=== PATIENT | male | born 1945 | race Caucasian/White ===

== ENCOUNTER → 2018-01-03 11:41 | Outpatient (CLI) | payer MEDICARE, SELFPAY ==
[2018-01-03 15:24] LABS: Absolute Lymphocyte Count 2.84 X10^3/ul (0.83-4.51); Absolute Neutrophil Count 8.6 X10^3/uL (2.0-7.7); Basophil# 0.02 X10^3/uL; Basophil% 0.2 % (0-1); Eosinophil# 0.15 X10^3/uL; Eosinophils% 1.2 % (0-5); Hematocrit 42.5 % (40-54); Hemoglobin 13.9 g/dl (13.0-16.5); Lymphocyte # 2.84 X10^3/ul (4.0); Lymphocyte % 22.4 % (19-41); Mean Corp Hgb Conc 32.7 g/gl (32-36); Mean Corpuscular Hgb 32.7 pg (27.0-32.0); Mean Platelet Vol. 9.6 fl (6.2-12.0); Monocyte# 1.08 X10^3/uL; Monocyte% 8.5 % (0-10); Neutrophil # 8.58 X10^3/uL (2.7-7.7); Neutrophil % 67.5 % (47-70); Platelet Count 317 K/mm3 (150-450); RBC Distribution Width CV 12.4 % (11.6-14.6); RBC Distribution Width SD 45.2 fl (35.1-43.9); Red Blood Count 4.25 M/mm3 (4.6-6.2); White Blood Count 12.7 K/mm3 (4.4-11.0)
[2018-01-03 15:31] LABS: AST(SGOT) 23 U/L (15-37); Alanine Aminotransfer ALT/SGPT 30 U/L (16-61); Albumin, Serum 3.5 g/dL (3.2-5.0); Alkaline Phosphatase 73 U/L (45-117); Anion Gap 8 (5-15); BUN 20 mg/dL (7-18); BUN/Creat Ratio 25.6 RATIO (10-20); Calcium,Total 8.6 mg/dL (8.5-10.1); Chloride 106 mmol/L (98-107); Cholesterol 183 mg/dL (200); Creatinine, Serum 0.78 mg/dL (0.70-1.30); EST Glomerular Filtration Rate 104 mL/min (>60); Est Glom Filt Rate - Afr Amer 126 mL/min (>60); Globulin 3.6 g/dL (2.2-4.2); Glucose 76 mg/dL (74-106); High Density Lipoprotein 67 mg/dL; Potassium 4.2 mmol/L (3.5-5.1); Protein, Total 7.1 g/dL (6.4-8.2); Sodium Level 141 mmol/L (136-145); Triglycerides 60 mg/dL; Very Low Density Lipoprotein 12 mg/dL (5-40)
[2018-01-03 15:44] LABS: POSITIVE COUNT NO; POSITIVE DIFFERENTIAL NO; POSITIVE MORPHOLOGY NO
== END ==
PROVIDERS: Visit Provider Family Medicine
DX: Z00.00 Encounter for general adult medical examination without abnormal findings (principal); Z12.5 Encounter for screening for malignant neoplasm of prostate
CPT/HCPCS: 36415; 80053; 80061; 84153; 85025; G0103

== ENCOUNTER → 2018-02-15 14:38 | Outpatient (CLI) | payer MEDICARE, SELFPAY | PROVIDERS: Family Provider Family Medicine; PCP Family Medicine; Visit Provider Family Medicine | DX: R31.9 Hematuria, unspecified (principal) | CPT/HCPCS: 87086 ==

== ENCOUNTER → 2018-03-21 07:44 | Outpatient (CLI) | payer MEDICARE, SELFPAY ==
--- NOTE | 2018-03-21 10:58 | PFTCOMP_ITS ---
COMPLETE PULMONARY FUNCTION TEST INTERPRETATION Brief HPI: Patient is a 72 year old male, currently under the care of Dr. Meyer, who presents to [facility] for complete pulmonary function tests secondary to diagnosis of bronchitis. Respiratory therapist reports good effort and reproducible results. Interpretation: Forced expiration spirometry shows a mild large airways obstructive ventilatory defect with an FEV1 of 79% predicted. There is a significant bronchodilator resp onse in FEV1 by strict ATS criteria. Spirograms are of good quality and plateau slowly, indicating slowly emptying areas of the lungs. The respiratory flow volume loop shows decreased expiratory flow rates at all lung volumes consistent with airway obstruction. Lung volumes by body plethysmography show an elevated total lung capacity at 8.79 L, 146% predicted. All other lung volumes are increased symmetrically. Diffusion capacity by carbon monoxide is normal at 78% predicted. The airway resistance is elevated. No previous pulmonary function tests were available for review. Impression: Partially reversible mild large airways obstructive ventilatory defect resulting in hyperinflation and consistent with a COPD/asthma overlap syndrome
== END ==
PROVIDERS: Family Provider Family Medicine; PCP Family Medicine; Referring Provider Family Medicine; Visit Provider Family Medicine
DX: J42 Unspecified chronic bronchitis (principal); Z72.0 Tobacco use
CPT/HCPCS: 94060; 94726; 94729

== ENCOUNTER 2018-03-27 00:48 | Inpatient (IN) | payer MEDICARE, SELFPAY ==
[2018-03-27] VITALS (13 sets, daily range): BP systolic 126–175; BP diastolic 70–105; PULSE 54–84; RESP 15–18; TEMP 36.6–37.2; O2SAT 96–100; BMI 23.9; BMI 23.6; BMI 23.2
--- NOTE | 2018-03-27 00:57 | CT_ITS ---
STUDY: CT ABDOMEN AND PELVIS WITH CONTRAST REASON FOR EXAM: Male, 72 years old. Trouble voiding, hematuria since 9:00 PM. History of enlarged prostate. RADIATION DOSAGE (If Supplied By Facility): CTDIvol = ( 12.67 ) mGy, DLP = ( 1183.26 ) mGycm TECHNIQUE: Transaxial 3.75 mm enhanced and delayed images were obtained from the dome of the diaphragm to the symphysis pubis without oral contrast. 100 ml of Isovue 300 contrast was administered. Sagittal and coronal images were reconstructed. Individualized dose optimization techniques were used for this CT. COMPARISON: None. FINDINGS: Hyperinflation and emphysematous lung changes bilaterally. There is no focal parenchymal abnormality. The visualized portions of the heart are within normal limits. Normal liver. Normal gallbladder and extrahepatic biliary system. Normal spleen. Normal pancreas. Normal bilateral adrenal glands. Normal right kidney. Normal left kidney. Normal visualized stomach. Normal small intestine. Normal colon. The appendix is visualized and appears normal. There is mild atherosclerosis of the abdominal aorta and pelvic arteries without aneurysm or leak. Normal inferior vena cava. Normal retroperitoneum. Distended urinary bladder measuring 9 x 9.2 x 11.5 cm with pockets of air along the nondependent portion. There is a round relatively homogeneous hyperattenuation containing a calcification along the dependent inferior urinary bladder floor measuring 7.1 x 7.4 x 7.5 cm. There is enlargement of the prostate gland. Prostate gland measures 6.6 x 7.3 x 6.6 cm. A Virk catheter is visualized in in the penile urethra with the partially inflated catheter balloon, the catheter tip extending to the inferior prostate. There is a bilateral hydrocele. The seminal vesicles are low attenuated and enlarged. There is a right-sided inguinal hernia containing fluid/hydrocele. Normal osseous structures. CT/Abdomen/Pelvis W IV Cont ONLY IMPRESSION: Distended urinary bladder containing a relatively homogeneous round hyperattenuation with a possibly urinary bladder calculus. This may be a hematoma. There is no lobularity or irregularity as to be expected with a neoplasm, neoplastic etiologies however not excluded. The Virk catheter is malpositioned within the penile urethra. Marked prostate enlargement. No UVJ obstruction. These findings were discussed on the telephone with Dr. Roblero at 305 hrs. EST on 03/27/2018. Enlarged seminal vesicles are of unclear etiology. Bilateral hydrocele, right inguinal hernia. Emphysema. Mild arteriosclerosis. Electronically Signed: Tiffany Campbell MD at 3:12 EST , Service support ,
[2018-03-27 01:21] LABS: Absolute Lymphocyte Count 1.82 X10^3/ul (0.83-4.51); Absolute Neutrophil Count 12.1 X10^3/uL (2.0-7.7); Basophil# 0.02 X10^3/uL; Basophil% 0.1 % (0-1); Eosinophil# 0.05 X10^3/uL; Eosinophils% 0.3 % (0-5); Hematocrit 41.1 % (40-54); Hemoglobin 14.1 g/dl (13.0-16.5); Lymphocyte # 1.82 X10^3/ul (4.0); Lymphocyte % 12.3 % (19-41); Mean Corp Hgb Conc 34.3 g/gl (32-36); Mean Corpuscular Hgb 33.3 pg (27.0-32.0); Mean Corpuscular Volume 97.2 fL (80-94); Mean Platelet Vol. 9.2 fl (6.2-12.0); Monocyte# 0.85 X10^3/uL; Monocyte% 5.7 % (0-10); Neutrophil # 12.05 X10^3/uL (2.7-7.7); Neutrophil % 81.3 % (47-70); Platelet Count 284 K/mm3 (150-450); RBC Distribution Width CV 12.1 % (11.6-14.6); RBC Distribution Width SD 43.1 fl (35.1-43.9); Red Blood Count 4.23 M/mm3 (4.6-6.2); White Blood Count 14.8 K/mm3 (4.4-11.0)
[2018-03-27 01:24] LABS: Mucous, Urine 0 SEEN /hpf (<or=2+); Squamous Epithelial Cells - UA 0 SEEN /hpf (0-5)
[2018-03-27 01:33] LABS: Color, Urine Red (Yellow); Glucose, Dipstick Normal (Normal); Ketone-Dipstick Negative (Negative); Leukocyte Esterase-Dipstick 25 /ul (Negative); Nitrite-Dipstick Negative (Negative); Occult Blood-Urine 250 /ul (Negative); Protein-Dipstick 500 mg/dl (Negative); Urine Bilirubin Dipstick Negative (Negative); Urine Clarity Turbid (Clear); Urine Urobilinogen Normal (Normal); Urine pH 6.5 (5.0 - 8.0)
[2018-03-27 01:37] LABS: Red Blood Cells-Urine > 100 SEEN /hpf (0-5)
[2018-03-27 01:37] LABS: ALB/GLOB Ratio 1.2 RATIO (0.9-2.4); AST(SGOT) 23 U/L (15-37); Alanine Aminotransfer ALT/SGPT 33 U/L (16-61); Albumin, Serum 3.7 g/dL (3.2-5.0); Alkaline Phosphatase 77 U/L (45-117); Anion Gap 10 (5-15); BUN 31 mg/dL (7-18); BUN/Creat Ratio 37.3 RATIO (10-20); Calcium,Total 8.8 mg/dL (8.5-10.1); Chloride 110 mmol/L (98-107); Creatinine, Serum 0.83 mg/dL (0.70-1.30); EST Glomerular Filtration Rate 97 mL/min (>60); Est Glom Filt Rate - Afr Amer 117 mL/min (>60); Estimated Creatinine Clearance 80.12 ml/min; Globulin 3.2 g/dL (2.2-4.2); Glucose 121 mg/dL (74-106); Potassium 4.1 mmol/L (3.5-5.1); Protein, Total 6.9 g/dL (6.4-8.2); Sodium Level 142 mmol/L (136-145)
[2018-03-27 01:38] LABS: Bacteria 2+ /hpf (None Seen); White Blood Cells 25-50 SEEN /hpf (0-5)
[2018-03-27 01:45] LABS: POSITIVE COUNT NO; POSITIVE DIFFERENTIAL NO; POSITIVE MORPHOLOGY NO
[2018-03-27] MEDS: HYDROmorphone 1 MG/ML Syringe IV (02:52)
[2018-03-27 03:37] LABS: Prothrombin Time (Protime)PT. 12.8 SECONDS (11.7-14.9)
[2018-03-27 03:38] LABS: Partial Thromboplast Time 30.1 Seconds (24.1-36.2)
--- NOTE | 2018-03-27 03:58 | ED.RN ---
#[address] BARRERA CATHETER REMOVED IT IS NOT DRAINING AND IT IS NOT PAST THE PROSTATE PER CT REPORT. #[address] INSERTED AT THIS TIME. IMMEDIATE HEMATURIA NOTE. PT FEELS RELIEF FROM BLADDER PRESSURE AT THIS TIME.
--- NOTE | 2018-03-27 04:28 | ED.VISSUMM ---
- ER Visit Summary Date of Service: 03/27/18 Chief Complaint: Urinary urgency History of Present Illness: The patient is a 72 M with urinary urgency, frequency, and hematuria. Patient had similar symptoms one time about a month ago and then he had recurrent symptoms for the last 3 hours prior to arrival. He said he is just urinating blood. He does not feel that he is emptying his bladder. He is going more frequently. Denies discharge, fevers, or any other symptoms. He denies blood thinner use. He has a history of an enlarged prostate and elevated PSA. He had prostate biopsies remotely, but nothing recently. No history of kidney stones. No history of prostate cancer. Physical Examination: Afebrile and vital signs unremarkable. The patient appears uncomfortable but not toxic or in distress. Patient has suprapubic area tenderness and fullness. Otherwise exam unremarkable. Test Results: White count 14.8, chloride 110, BUN 31, coags normal. Urinalysis shows hematuria with 25-50 white cells, only 25 leukocytes and negative nitrites. CT showed enlarged prostate with a homogenous mass in his bladder, suspected hematoma with an associated calcification. The catheter was not in the bladder. Emergency Department Course and Treatment: Patient had a catheter on arrival. He did drain some blood, and nursing replaced with a three-way catheter for irrigation. He had no further drainage even after irrigation. Patient went for a CT and showed that the catheter was not in the bladder. This was removed and a smaller Virk catheter was replaced successfully. He had drainage of bloody urine and improvement of his pain. Patient was discussed with Dr. Telles and will be admitted for further care. Treatment Plan: As above Disposition: Admission Impression: 1. Hematuria 2. Enlarged prostate This note was generated with [employer] software. It may contain incorrect words, spelling, and punctuation that were not noted in review of the chart prior to signing ED Disposition - Plan for ED Patient: Chief Complaint: Complaint Referrals: Radha Meyer MD [Primary Care Provider] -
[2018-03-27] MEDS: 0.9% Normal Saline 1,000 ML 75 ML IV ×2 (06:30→17:34)
[2018-03-27] MEDS: Finasteride 5 MG Tablet PO (07:44)
[2018-03-27] MEDS: Ciprofloxacin 500 MG Tablet PO ×2 (07:44→21:26)
[2018-03-27] MEDS: Citalopram 40 MG TABLET PO (07:44)
--- NOTE | 2018-03-27 09:05 | PCM.HP.STD ---
Problem List (1) Gross hematuria Status: Acute Comment: Acute onset (2) Bladder stone Status: Acute (3) BPH with obstruction/lower urinary tract symptoms Status: Acute History of Present Illness Date of Admission: 03/26/18 Chief Complaint: Gross hematuria The patient is a 72 year old male who was admitted on March 26, 2018 to the hospital with gross hematuria, CAT scan was done that demonstrated a large bladder stone and a large blood clot within the bladder he also has a very large prostate. Known to me in the office we follow him for enlarged prostate up to now he has not had too many symptoms and has been on observation Past Medical History Medical History: Medical History (Last Updated 03/27/18 @ 09:08 by Jed Telles MD) BPH with obstruction/lower urinary tract symptoms N40.1, N13.8 Allergies Sulfa (Sulfonamide Antibiotics) Allergy (Verified 03/27/18 00:52) Anaphylaxis Home Medications: Ambulatory Orders Medication Instructions Recorded Citalopram [Celexa] 40 mg PO DAILY 08/02/15 Naproxen [Naprosyn] 500 mg PO DAILY PRN PRN 03/27/18 Surgical History: noncontributory Psychiatric History: No pertinent psych hx Lives: With Family Smoking Status: Current every day smoker Tobacco Use: Non-smoker Alcohol: None Drugs: None - *Family History Maternal History Items: No pertinent history Review of Systems Constitutional: Denies: Chills, Fever, Weight Change HEENT: Denies: Head Aches, Sinus Congestion, Sinus Drainage Cardiovascular: Denies: Chest Pain, Palpitations Respiratory: Denies: Cough, Shortness of breath at rest, Sputum production Gastrointestinal: Denies: Abdominal Pain, Nausea, Vomiting Genitourinary: Reports: Hematuria. Denies: Dysuria Musculoskeletal: Denies: Joint Pain, Joint Tenderness Skin: Denies: Rash, Wounds Neurological: Denies: Numbness, Tingling, Focal weakness Psychiatric: Denies: Anxiety, Depression, Homicidal Ideations, Suicidal Ideations Hematologic/ Lymphatic: Denies: Easy Bruising, Easy Bleeding VTE Information - Inpt Only VTE Present on Admission: No VTE Mechan Device Prophylaxis: SCD's Patient Problems: Active and Suspected Problems Gross hematuria (Acute) Acute onset Bladder stone (Acute) BPH with obstruction/lower urinary tract symptoms (Acute) - Physical Exam General: Alert, Oriented x3, Cooperative HEENT: Atraumatic, PERRLA, EOMI, Normocephalic Neck: Supple, No JVD, Negative Carotid Bruits Lungs: Clear to auscultation, Normal air movement Cardiovascular: Regular rate, No murmurs Abdomen: Bowel Sounds Present, Soft, Non Tender Extremities: No edema, Capillary Refill Less than 3 Seconds Skin: No rashes, No breakdown Musculoskeletal: No Tenderness to Palpation of Joints or Extremities Neurological: Cranial nerves II-XII grossly intact Psych/Mental Status: Normal Affect, Appropriate Vital Signs Temp Pulse Resp BP Pulse Ox 98.1 F 77 18 134/74 H 97 03/27/18 05:32 03/27/18 05:32 03/27/18 05:32 03/27/18 05:32 03/27/18 05:32 Oxygen Delivery Method Room Air Weight: 71.4 kg Body Mass Index (BMI) 23.6 Intake and Output for Last 24 Hours 03/25/18 03/26/18 03/27/18 23:59 23:59 23:59 Output Total 675 / 675 Balance -675 / -675 Laboratory Tests Past 24 Hrs 03/27/18 03/27/18 03/27/18 01:14 01:14 01:14 WBC 14.8 H RBC 4.23 L Hgb 14.1 Hct 41.1 MCV 97.2 H MCH 33.3 H MCHC 34.3 RDW 12.1 RDW Differential 43.1 Plt Count 284 MPV 9.2 Immature Gran % (Auto) 0.300 Neut % (Auto) 81.3 H Lymph % (Auto) 12.3 L Mcclain % (Auto) 5.7 Eos % (Auto) 0.3 Baso % (Auto) 0.1 Absolute Neuts (auto) 12.1 H Absolute Lymphs (auto) 1.82 Total Counted Not Reportable PT 12.8 INR 1.0 APTT 30.1 Sodium 142 Potassium 4.1 Chloride 110 H Carbon Dioxide 22.0 Anion Gap 10 BUN 31 H Creatinine 0.83 Estim Creat Clear Calc 80.12 Est GFR (MDRD) Af Amer 117 Est GFR (MDRD) Non-Af 97 BUN/Creatinine Ratio 37.3 H Glucose 121 H Calcium 8.8 Total Bilirubin 0.30 AST 23 ALT 33 Alkaline Phosphatase 77 Total Protein 6.9 Albumin 3.7 Globulin 3.2 Albumin/Globulin Ratio 1.2 Urine Color Urine Clarity Urine pH Ur Specific [place] Urine Protein Urine Glucose (UA) Urine Ketones Urine Occult Blood Urine Nitrite Urine Bilirubin Urine Urobilinogen Ur Leukocyte Esterase Urine RBC Urine WBC Ur Squamous Epith Cells Urine Bacteria Urine Mucus 03/27/18 01:20 WBC RBC Hgb Hct MCV MCH MCHC RDW RDW Differential Plt Count MPV Immature Gran % (Auto) Neut % (Auto) Lymph % (Auto) Mcclain % (Auto) Eos % (Auto) Baso % (Auto) Absolute Neuts (auto) Absolute Lymphs (auto) Total Counted PT INR APTT Sodium Potassium Chloride Carbon Dioxide Anion Gap BUN Creatinine Estim Creat Clear Calc Est GFR (MDRD) Af Amer Est GFR (MDRD) Non-Af BUN/Creatinine Ratio Glucose Calcium Total Bilirubin AST ALT Alkaline Phosphatase Total Protein Albumin Globulin Albumin/Globulin Ratio Urine Color Red Urine Clarity Turbid Urine pH 6.5 Ur Specific [place] 1.020 Urine Protein 500 H Urine Glucose (UA) Normal Urine Ketones Negative Urine Occult Blood 250 H Urine Nitrite Negative Urine Bilirubin Negative Urine Urobilinogen Normal Ur Leukocyte Esterase 25 H Urine RBC > 100 SEEN Urine WBC 25-50 SEEN Ur Squamous Epith Cells 0 SEEN Urine Bacteria 2+ Urine Mucus 0 SEEN Assessment/Plan All Active Problems Gross hematuria (Acute) Bladder stone (Acute) BPH with obstruction/lower urinary tract symptoms (Acute) Patient will be admitted to the hospital, Virk catheter was placed draining bloody urine. At this point the nurses will irrigate the catheter manually as needed if not draining also use BNO suppositories for bladder spasms. CAT scan demonstrates a bladder stone and large bladder hematoma. [facility] tomorrow for cystoscopy cystolitholapaxy and laser of the bladder stone and evacuation of blood clots. We will start him on Flomax and Proscar continue with antibiotics.
--- NOTE | 2018-03-27 09:35 | EKG12_ITS ---
Test Reason : PRE OP Blood Pressure : / mmHG Vent. Rate : 061 BPM Atrial Rate : 061 BPM P-R Int : 168 ms QRS Dur : 098 ms QT Int : 460 ms P-R-T Axes : 070 083 076 degrees QTc Int : 463 ms Normal sinus rhythm Normal ECG When compared with ECG of 22-MAR-2014 12:01, No significant change was found Confirmed by MIRIAN TAVAREZ, DEIDRA ([id number]), photograph editor GOVIND RDZ ([id number]) on 03/29/2018 5:38:20 PM Referred By: Radha Meyer Confirmed By:DEIDRA VELA MD
--- NOTE | 2018-03-27 14:25 | OP.PCM_ITS ---
Problem List (1) Gross hematuria Status: Acute Comment: Acute onset (2) Bladder stone Status: Acute (3) BPH with obstruction/lower urinary tract symptoms Status: Acute Report of Operation Date of Procedure: 03/27/18 Pre-Operative Diagnosis: Gross hematuria and BPH and bladder stone large Post-Operative Diagnosis: Same Surgery/Procedure Performed:: Cystoscopy evacuation of blood clots cystolitholapaxy and laser of a large bladder stone placement of a three-way catheter Description of Surgical Findings:: Indication is a 72-year-old male presented to the hospital with bleeding CAT scan was done that demonstrated a large hematoma in the bladder a large bladder stone very enlarged prostate. Is a patient known to my practice we have been watching his prostate for a long time he has been relatively asymptomatic but presented to the hospital with gross hematuria and clot retention. A catheter was placed he was put on irrigation. At this point we admitted the patient for the clot retention pain control and taken to the surgery as soon as possible to evacuate the blood clots and also laser of the bladder stone. 72-year-old male who was taken back to the operating room after smooth induction of general anesthesia he was placed supine on the table that he was placed in dorsolithotomy position make sure that his legs were padded in the stirrups he had SCDs on for DVT prophylaxis, he was given Cipro antibiotic prior to the procedure. The current catheter was removed and the penis and testicles are prepped and draped in usual sterile fashion went into the bladder with a 21 Azerbaijani rigid cystourethroscope the entire length of the urethra was normal sphincter was intact prostate had bilateral hypertrophy no median lobe extremely large prostate. Once entered the bladder he had a large hematoma within the bladder this was manually irrigated out with a Angel Luis syringe to irrigate out all the clots out after irrigating out the clots that the bottom of the bladder was a large bladder stone I used a 1000 ?m laser fiber with energy settings of 6 Hz and 3.0 J and laser the stone little tiny pieces after successfully lasering the stone I then evacuated the stone fragments from the bladder until all the stone fragments were clear at that point we inspected the bladder had a very large protruding prostate bilateral hypertrophy a lot of venous veins around the prostate no clear indication where the bleeding was coming from I suspect probably from the stone rubbing against the prostate and all the veins. Within the bladder there is no tumor no tumors checked the posterior wall lateral holder anterior wall no tumors are seen within the bladder all the clots were evacuated out. Was checked with a 70 and 30 degree lens. After evacuation of the blood clots laser out the stone checking for cancer however he was clear and then placed a 22 Azerbaijani three-way catheter into the bladder put on continuous bladder irrigation and his anesthesia is currently being reversed. Type of Anesthesia:: General Drains: 22fr - Admit VTE Documentation VTE Present on Admission: No VTE Mechan Device Prophylaxis: SCD's
--- NOTE | 2018-03-27 14:37 | DCINST_ITS ---
Discharge Diet: Light diet - advance as tolerated Discharge Activity: May Drive Return to work on:: 03/29/18 May resume sexual activity in: No Restrictions Call your doctor if your incision/area has: Sudden Increased Bleeding Call your doctor if you observe: Fever of 101 or Higher Suture Line Care: Avoid Pulling/Pushing, Avoid Pinching/Bending Allergies/Adverse Reactions: Allergies Sulfa (Sulfonamide Antibiotics) Allergy (Verified 03/27/18 00:52) Anaphylaxis Medications to take at Discharge Citalopram [Celexa] 40 mg PO DAILY 08/02/15 Ciprofloxacin [Cipro] 500 mg PO BID #6 tablet 03/27/18 Finasteride [Proscar] 5 mg PO DAILY #30 tablet 03/27/18 Naproxen [Naprosyn] 500 mg PO DAILY PRN PRN 03/27/18 Tamsulosin HCl [Flomax] 0.4 mg PO DAILY #30 capsule 03/27/18 The following prescriptions were given: Finasteride [Proscar] 5 mg PO DAILY #30 tablet Tamsulosin HCl [Flomax] 0.4 mg PO DAILY #30 capsule Ciprofloxacin [Cipro] 500 mg PO BID #6 tablet Primary Care Physician: Radha Meyer MD [Primary Care Provider] - Test Results: Test results from this visit will be discussed in further detail at your follow- up appointment, if applicable. Please Follow Up With: Jed Telles MD When: in 2 weeks, please call to make an appointment.
[2018-03-27] MEDS: Tamsulosin HCl 0.4 MG Capsule 0.8 MG PO (17:32)
[2018-03-27] MEDS: DiphenhydrAMINE 25 MG Capsule PO (21:27)
[2018-03-28] MEDS: Acetaminophen 325 MG Tablet 650 MG PO (02:40)
[2018-03-28] MEDS: 0.9% Normal Saline 1,000 ML 75 ML IV (02:41)
[2018-03-28 03:00] VITALS: BP 113/66; PULSE 77; RESP 16; TEMP 36.9; O2SAT 99
--- NOTE | 2018-03-28 07:24 | PCM.DC.SUM ---
Discharge Date and Diagnosis - Problem List Patient Problems: Active and Suspected Problems (Last Updated 03/27/18 @ 09:08 by Jed Telles MD) Gross hematuria (Acute) Acute onset Bladder stone (Acute) BPH with obstruction/lower urinary tract symptoms (Acute) Date of Admission: 03/26/18 Date of Discharge: 03/28/18 - Primary Discharge Diagnosis Active and Suspected Problems (Last Updated 03/27/18 @ 09:08 by Jed Telles MD) Gross hematuria (Acute) Acute onset Bladder stone (Acute) BPH with obstruction/lower urinary tract symptoms (Acute) Hospital Course and Treatment Operations: - - cystoscopy and laser bladder stones Procedures: None Summary of Care Provided: The patient is a 72 year old male admitted from bleeding had large bladder stone, taken to surgery and bladder stone lasered, 3 way carmen d/c home after voids.rx given. Patient Problems: Active and Suspected Problems (Last Updated 03/27/18 @ 09:08 by Jed Telles MD) Gross hematuria (Acute) Acute onset Bladder stone (Acute) BPH with obstruction/lower urinary tract symptoms (Acute) - Physical Exam General: Alert, Oriented x3, Cooperative HEENT: Atraumatic, PERRLA, EOMI, Normocephalic Neck: Supple, No JVD, Negative Carotid Bruits Lungs: Clear to auscultation, Normal air movement Cardiovascular: Regular rate, No murmurs Abdomen: Bowel Sounds Present, Soft, Non Tender Extremities: No edema, Capillary Refill Less than 3 Seconds Skin: No rashes, No breakdown Musculoskeletal: No Tenderness to Palpation of Joints or Extremities Neurological: Cranial nerves II-XII grossly intact Psych/Mental Status: Normal Affect, Appropriate Vital Signs Temp Pulse Resp BP Pulse Ox 98.4 F 77 16 113/66 99 03/28/18 03:00 03/28/18 03:00 03/28/18 03:00 03/28/18 03:00 03/28/18 03:00 Oxygen Flow Rate (L/min) 10 Oxygen Delivery Method Room Air Weight: 71.4 kg Body Mass Index (BMI) 23.2 Intake and Output for Last 24 Hours 03/26/18 03/27/18 03/28/18 23:59 23:59 23:59 Intake Total 2226 / 2226 1165 / 1165 Output Total 2075 / 2075 1600 / 1600 Balance 151 / 151 -435 / -435 Discharge Diet: Light diet - advance as tolerated Discharge Activity: May Drive Return to work on:: 03/29/18 May resume sexual activity in: No Restrictions Call your doctor if your incision/area has: Sudden Increased Bleeding Call your doctor if you observe: Fever of 101 or Higher Suture Line Care: Avoid Pulling/Pushing, Avoid Pinching/Bending Home Medications: Medications to take at Discharge Citalopram [Celexa] 40 mg PO DAILY 08/02/15 Ciprofloxacin [Cipro] 500 mg PO BID #6 tablet 03/27/18 Finasteride [Proscar] 5 mg PO DAILY #30 tablet 03/27/18 Naproxen [Naprosyn] 500 mg PO DAILY PRN PRN 03/27/18 Tamsulosin HCl [Flomax] 0.4 mg PO DAILY #30 capsule 03/27/18 Following Prescrptions Were Given to Patient: Finasteride [Proscar] 5 mg PO DAILY #30 tablet Tamsulosin HCl [Flomax] 0.4 mg PO DAILY #30 capsule Ciprofloxacin [Cipro] 500 mg PO BID #6 tablet Primary Care Physician: Radha Meyer MD [Primary Care Provider] - Please Follow Up With: Jed Telles MD When: in 2 weeks, please call to make an appointment. Medical Necessity - Tobacco Use Smoking Status: Current every day smoker Tobacco Use: Non-smoker Meaningful Use Info Meaningful Use Diagnoses (Choose all that apply): None applicable
[2018-03-28 07:50] VITALS: BP 118/67; PULSE 70; RESP 16; TEMP 36.7; O2SAT 96
[2018-03-28] MEDS: Finasteride 5 MG Tablet PO (09:25)
[2018-03-28] MEDS: Citalopram 40 MG TABLET PO (09:25)
[2018-03-28] MEDS: Ciprofloxacin 500 MG Tablet PO (09:25)
[2018-03-28 10:45] VITALS: BP 125/63; PULSE 79; RESP 16; TEMP 36.7; O2SAT 95
--- NOTE | 2018-03-28 11:05 | CASEMGMT ---
LAVELL CM in to complete Face to Face assessment with patient. Patient is dressed, walking independently in room. Patient states he is discharging home and denies needs at this time. Patient is aware of follow-up plans and has appointment in 2 weeks. Patient denies any further needs at this time.
== END 2018-03-28 11:11 | disposition home or self-care (01) | DRG 700 ==
LOC: ED 03:01 → MS3 04:35
PROVIDERS: Admitting Provider Urology; Emergency Provider Emergency Medicine; Family Provider Family Medicine; PCP Family Medicine; Visit Provider Urology
PROC: 0TCB8ZZ Extirpation of Matter from Bladder, Via Natural or Artificial Opening Endoscopic (ICD-10-PCS; principal; 2018-03-27 10:30)
DX: N32.89 Other specified disorders of bladder (principal); N40.1 Benign prostatic hyperplasia with lower urinary tract symptoms; N13.8 Other obstructive and reflux uropathy; N21.0 Calculus in bladder; R31.0 Gross hematuria; J44.9 Chronic obstructive pulmonary disease, unspecified; F17.210 Nicotine dependence, cigarettes, uncomplicated
CPT/HCPCS: 51702; 74177; 80053; 81001; 85025; 85610; 85730; 87086; 93005; 99283; J7030; Q9967; A4216

== ENCOUNTER → 2018-09-19 07:41 | Outpatient (CLI) | payer MEDICARE, SELFPAY ==
[2018-03-27 12:55] VITALS: BMI 23.2
--- NOTE | 2018-09-19 07:49 | US_ITS ---
PROCEDURES: ULTRASOUND AORTA REASON FOR EXAM: Male, 73 years old. Screening TECHNIQUE: Ultrasound evaluation of the aorta was performed with real-time and static starks-scale imaging. COMPARISON: None. FINDINGS: There is atherosclerotic plaque formation of the abdominal aorta. Aorta measures: Proximal 2.3 cm. Middle 1.6 cm. Distal 1.6 cm. Aorta measure transversely: Proximal 2.5 cm. Middle 1.9 cm. Distal 1.7 cm. Right iliac artery measures: 1.0 cm. Right iliac artery measure transversely: 1.4 cm. Left iliac artery measures: 1.0 cm. Left iliac artery measure transversely: 1.3 cm. There is no demonstrated aneurysm.. US/Aorta IMPRESSION: Mild plaque, no demonstrated aneurysm or dissection Electronically Signed: Cody Calderón MD at 16:29 EDT , Service support ,
== END ==
PROVIDERS: Family Provider Family Medicine; PCP Family Medicine; Referring Provider Family Medicine; Visit Provider Family Medicine
DX: Z13.6 Encounter for screening for cardiovascular disorders (principal); Z72.0 Tobacco use
CPT/HCPCS: 76775

== ENCOUNTER → 2018-12-26 09:32 | Outpatient (CLI) | payer MEDICARE, SELFPAY ==
[2018-03-27 12:55] VITALS: BMI 23.2
== END ==
PROVIDERS: Family Provider Family Medicine; PCP Family Medicine; Referring Provider Urology; Visit Provider Urology
DX: R97.20 Elevated prostate specific antigen [PSA] (principal)
CPT/HCPCS: 36415; 84153

== ENCOUNTER → 2020-04-08 09:09 | Outpatient (CLI) | payer MEDICARE, SELFPAY ==
[2018-03-27 12:55] VITALS: BMI 23.2
[2020-04-08 10:29] LABS: PSA,Total- Diagnostic 9.34 ng/mL (0.0-4.0)
== END ==
PROVIDERS: PCP Family Medicine; Referring Provider Urology; Visit Provider Urology
DX: N40.1 Benign prostatic hyperplasia with lower urinary tract symptoms (principal)
CPT/HCPCS: 36415; 84153

== ENCOUNTER 2021-05-26 10:33 | Outpatient (CLI) | payer MEDICARE, SELFPAY ==
[2021-05-26 13:20] LABS: PSA,Total- Diagnostic 7.85 ng/mL (0.0-4.0)
== END 2021-05-26 23:59 | disposition home or self-care (01) ==
LOC: LAB 10:37
PROVIDERS: PCP Family Medicine; Referring Provider Urology; Visit Provider Urology
DX: N40.1 Benign prostatic hyperplasia with lower urinary tract symptoms (principal)
CPT/HCPCS: 36415; 84153

== ENCOUNTER → 2021-12-29 | Outpatient (CLI) | payer MEDICARE, SELFPAY ==
--- NOTE | 2021-12-29 09:19 | RAD_ITS ---
STUDY: X-RAY CHEST REASON FOR EXAM: Male, 76 years old. Right upper anterior chest wall pain. Right shoulder pain. TECHNIQUE: PA and lateral views of the chest. COMPARISON: None. FINDINGS: The lungs are mildly hyperexpanded. There is no acute infiltrate or mass. There is no demonstrated pleural abnormality. Normal size heart. Normal mediastinum and daysi. Normal visualized pulmonary arteries. There is atherosclerotic calcification of the aortic arch with tortuosity. Normal visualized thoracic spine. There is degenerative osteoarthritis of the bilateral shoulders. There is no demonstrated abnormality of the visualized soft tissue structures of the upper abdomen. RAD/Chest PA and Lateral IMPRESSION: Degenerative changes, as described above. No demonstrated acute cardiopulmonary process. Electronically Signed: Carlos Shannon DO at 17:03 EDT ,
[2021-12-29 12:18] LABS: Absolute Lymphocyte Count 2.21 X10^3/uL (0.83-4.51); Basophil# 0.06 X10^3/uL; Basophil% 0.6 % (0-1); Eosinophil# 0.13 X10^3/uL; Eosinophils% 1.4 % (0-5); Hematocrit 44.4 % (40-54); Hemoglobin 14.7 g/dL (13.0-16.5); Lymphocyte # 2.21 X10^3/ul (0.83-4.51); Lymphocyte % 23.5 % (19-41); Mean Corp Hgb Conc 33.1 g/dL (32-36); Mean Corpuscular Hgb 33.7 pg (27.0-32.0); Mean Corpuscular Volume 101.8 fL (80-94); Mean Platelet Vol. 9.3 fl (6.2-12.0); Monocyte# 0.94 X10^3/uL; NRBC Flagged by Analyzer 0 % (0-5); Neutrophil # 6.01 X10^3/uL (2.7-7.7); Neutrophil % 64.1 % (47-70); Platelet Count 385 K/mm3 (150-450); RBC Distribution Width SD 45.9 fl (35.1-43.9); Red Blood Count 4.36 M/mm3 (4.6-6.2); White Blood Count 9.4 K/mm3 (4.4-11.0)
[2021-12-29 13:47] LABS: ALB/GLOB Ratio 0.9 RATIO (0.9-2.4); AST(SGOT) 24 U/L (15-37); Alanine Aminotransfer ALT/SGPT 31 U/L (16-61); Albumin, Serum 3.5 g/dL (3.2-5.0); Alkaline Phosphatase 84 U/L (45-117); Anion Gap 8 (5-15); BUN 25 mg/dL (7-18); Calcium,Total 9.5 mg/dL (8.5-10.1); Chloride 103 mmol/L (98-107); Cholesterol 192 mg/dL (200); Creatinine, Serum 0.89 mg/dL (0.70-1.30); EST Glomerular Filtration Rate 88 mL/min (>60); Est Glom Filt Rate - Afr Amer 107 mL/min (>60); Globulin 3.7 g/dL (2.2-4.2); Glucose 96 mg/dL (74-106); High Density Lipoprotein 77 mg/dL; Potassium 4.1 mmol/L (3.5-5.1); Protein, Total 7.2 g/dL (6.4-8.2); Sodium Level 140 mmol/L (136-145); Triglycerides 75 mg/dL; Very Low Density Lipoprotein 15 mg/dL (5-40)
== END | disposition home or self-care (01) ==
PROVIDERS: PCP Family Medicine; Referring Provider Family Medicine; Visit Provider Family Medicine
DX: R07.9 Chest pain, unspecified (principal); E78.5 Hyperlipidemia, unspecified
CPT/HCPCS: 36415; 71046; 80053; 80061; 85025

== ENCOUNTER → 2022-02-11 | Outpatient (CLI) | payer MEDICARE, SELFPAY ==
[2022-02-11 15:20] LABS: Absolute Lymphocyte Count 1.91 X10^3/uL (0.83-4.51); Absolute Neutrophil Count 5.5 X10^3/uL (2.0-7.7); Basophil# 0.04 X10^3/uL; Basophil% 0.5 % (0-1); Eosinophil# 0.08 X10^3/uL; Eosinophils% 0.9 % (0-5); Hematocrit 43.6 % (40-54); Hemoglobin 14.8 g/dL (13.0-16.5); Lymphocyte # 1.91 X10^3/ul (0.83-4.51); Lymphocyte % 22.4 % (19-41); Mean Corp Hgb Conc 33.9 g/dL (32-36); Mean Corpuscular Hgb 34.3 pg (27.0-32.0); Mean Corpuscular Volume 101.2 fL (80-94); Mean Platelet Vol. 9.6 fl (6.2-12.0); Monocyte# 0.94 X10^3/uL; NRBC Flagged by Analyzer 0 % (0-5); Neutrophil # 5.52 X10^3/uL (2.7-7.7); Platelet Count 367 K/mm3 (150-450); RBC Distribution Width CV 11.5 % (11.6-14.6); RBC Distribution Width SD 43.2 fl (35.1-43.9); Red Blood Count 4.31 M/mm3 (4.6-6.2); White Blood Count 8.5 K/mm3 (4.4-11.0)
[2022-02-11 15:34] LABS: Anion Gap 5 (5-15); BUN 21 mg/dL (7-18); BUN/Creat Ratio 26.5 RATIO (10-20); Calcium,Total 9.7 mg/dL (8.5-10.1); Chloride 103 mmol/L (98-107); Creatinine, Serum 0.79 mg/dL (0.70-1.30); EST Glomerular Filtration Rate 101 mL/min (>60); Est Glom Filt Rate - Afr Amer 123 mL/min (>60); Glucose 95 mg/dL (74-106); Potassium 4.1 mmol/L (3.5-5.1); Sodium Level 139 mmol/L (136-145)
== END | disposition home or self-care (01) ==
LOC: BFHLAB 11:28
PROVIDERS: PCP Family Medicine; Visit Provider Family Medicine
DX: Z01.818 Encounter for other preprocedural examination (principal)
CPT/HCPCS: 36415; 80048; 85025

== ENCOUNTER → 2022-06-09 | Outpatient (CLI) | payer MEDICARE, SELFPAY | END | disposition home or self-care (01) | LOC: LAB 11:10 | PROVIDERS: PCP Family Medicine; Visit Provider Registered Nurse | DX: R97.20 Elevated prostate specific antigen [PSA] (principal) | CPT/HCPCS: 36415; 84153 ==

== ENCOUNTER → 2022-06-22 | Outpatient (CLI) | payer MEDICARE, SELFPAY ==
--- NOTE | 2022-06-22 06:30 | MRI_ITS ---
STUDY: MR PELVIS WITH AND WITHOUT CONTRAST (PROSTATE) REASON FOR EXAM: Male, 76 years old. Elevated PSA TECHNIQUE: Standardized multiparametric prostate MRI with T1, T2, DWI/ADC sequences were obtained in 3 orthogonal planes, and dynamic contrast enhancement sequences. 13 ml of clariscn contrast material was administered intravenously for the contrast portion of the examination. COMPARISON: None. FINDINGS: The prostate volume measures 79.6 mm3. The contours of the prostate gland are lobulated. There is mass effect on the bladder base. The transition zone is heterogenous. PI-RADS DWI score 2 - Hypointense within a BPH nodule on ADC. PI-RADS T2W score 2 - A mostly encapsulated nodule OR a homogeneous circumscribed nodule without encapsulation (atypical nodule) or a homogeneous mildly hypointense area between nodules.. 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 The peripheral zone is homogenous. PI-RADS DWI score 1 - No abnormality (normal) on ADC or high b-value DWI. PI-RADS T2W score 2 - Linear, wedge-shaped, or diffuse mild hypointensity, usually with indistinct margin. There is hyperintensity of the left lateral peripheral zone. Contrast enhancement no early or contemporaneous enhancement; or diffuse multifocal enhancement NOT corresponding to a focal finding on T2W and/or DWI or focal enhancement responding to a lesion demonstrating features of BPH onT2WI (including features of extruded BPH in the PZ). The seminal vesicles demonstrate normal margins and T2 signal pattern. No mass lesion or invasion depicted. The rectoprostatic angles are normal. Urinary bladder is normal without wall thickening. The vascular structures of the are normal. The visualized hollow viscus structures are normal. No bone marrow edema or mass lesion depicted. MRI/Pelvis W/WO Contrast IMPRESSION: 1. PIRADS v2.1 2019 -- 2 - Low (clinically significant cancer is unlikely). Electronically Signed: Master Laguna (Brooks), at 15:54 EDT ,
[2022-06-22 07:00] LABS: CREATININE FINGERSTICK < 0.9 mg/dL (0.70-1.30); EGFR FINGERSTICK > 60.0000 mL/min (>60)
== END | disposition home or self-care (01) ==
LOC: MRI 06:07
PROVIDERS: PCP Family Medicine; Referring Provider Urology; Visit Provider Urology
DX: R97.20 Elevated prostate specific antigen [PSA] (principal)
CPT/HCPCS: 72197; A9575

== ENCOUNTER → 2022-06-25 | Outpatient (CLI) | payer MEDICARE, SELFPAY ==
[2022-06-25 09:34] LABS: Erythrocyte Sedimentation Rate 9 mm/hr (0-20)
[2022-06-25 09:36] LABS: Absolute Lymphocyte Count 1.89 X10^3/uL (0.83-4.51); Basophil# 0.06 X10^3/uL; Basophil% 0.8 % (0-1); Eosinophil# 0.12 X10^3/uL; Eosinophils% 1.5 % (0-5); Hematocrit 42.6 % (40-54); Lymphocyte # 1.89 X10^3/ul (0.83-4.51); Mean Corp Hgb Conc 32.9 g/dL (32-36); Mean Corpuscular Hgb 32.9 pg (27.0-32.0); Mean Corpuscular Volume 100.2 fL (80-94); Mean Platelet Vol. 9.1 fl (6.2-12.0); Monocyte# 0.82 X10^3/uL; Monocyte% 10.4 % (0-10); NRBC Flagged by Analyzer 0 % (0-5); Neutrophil # 4.98 X10^3/uL (2.7-7.7); Platelet Count 338 K/mm3 (150-450); RBC Distribution Width CV 11.8 % (11.6-14.6); RBC Distribution Width SD 43.8 fl (35.1-43.9); Red Blood Count 4.25 M/mm3 (4.6-6.2); White Blood Count 7.9 K/mm3 (4.4-11.0)
[2022-06-25 09:49] LABS: CRP 6.49 mg/L (0.0-3.0)
== END | disposition home or self-care (01) ==
LOC: LAB 08:50
PROVIDERS: PCP Family Medicine; Referring Provider Orthopaedic Surgery; Visit Provider Orthopaedic Surgery
DX: M19.011 Primary osteoarthritis, right shoulder (principal); R97.20 Elevated prostate specific antigen [PSA]
CPT/HCPCS: 36415; 85025; 85652; 86140

== ENCOUNTER → 2023-01-22 | Outpatient (CLI) | payer MEDICARE, SELFPAY | END | disposition home or self-care (01) | LOC: LAB 09:13 | PROVIDERS: PCP Family Medicine; Referring Provider Urology; Visit Provider Urology | DX: Z12.5 Encounter for screening for malignant neoplasm of prostate (principal); N40.1 Benign prostatic hyperplasia with lower urinary tract symptoms | CPT/HCPCS: 36415; 84153; G0103 ==

== ENCOUNTER → 2023-10-26 | Outpatient (CLI) | payer MEDICARE, SELFPAY ==
[2023-10-26 12:49] LABS: PSA,Total- Diagnostic 9.12 ng/mL (0.0-4.0)
[2023-10-27 13:08] LABS: PSA, Free 1.39 ng/mL
== END | disposition home or self-care (01) ==
LOC: LAB 11:30
PROVIDERS: PCP Family Medicine; Referring Provider Nurse Practitioner; Visit Provider Nurse Practitioner
DX: R97.20 Elevated prostate specific antigen [PSA] (principal)
CPT/HCPCS: 36415; 84153; 84154

== ENCOUNTER → 2024-10-30 | Outpatient (CLI) | payer MEDICARE, SELFPAY ==
[2024-10-30 14:42] LABS: PSA,Total- Diagnostic 8.97 ng/mL (0.00-4.00)
== END | disposition home or self-care (01) ==
LOC: LAB 13:38
PROVIDERS: PCP Family Medicine; Referring Provider Urology; Visit Provider Urology
DX: R97.20 Elevated prostate specific antigen [PSA] (principal)
CPT/HCPCS: 36415; 84153

== ENCOUNTER → 2025-01-19 | Outpatient (CLI) | payer MEDICARE, SELFPAY ==
--- OUTSIDE RECORDS SUMMARY | 2025-01-19 12:11 | XMS RPT_ITS | CCD ---
Author Organization [facility] Care Team Providers Care Division Operations Manager Name Role Phone Cedric Wren DO Primary Care Provider CEDRIC WREN Referring Unavailable CEDRIC WREN Primary Care Unavailable GHANSHYAM SMILEY Attending Unavailable Dr. Cedric Wren DO Primary Care Provider Elfego TAVAREZ, Dr. Jed Santillan Attending Provider Elfego TAVAREZ, Dr. Jed Santillan Referring Provider Jed Telles Referring Unavailable Jed Telles Attending Unavailable Cedric Wren Primary Care Unavailable Allergies Allergy Classification Reported Allergen(s) Allergy Type Date of Onset Reaction(s) Facility (6 sources) Sulfonamides (Antibiotic) Allergy to substance 9 Anaphylaxis [facility] (1 source) Sulfonamides (Antibiotic) Drug allergy (disorder) 9 [facility] Repository Medications Current Medications Medication Drug Class(es) Dates Sig (Normalized) Sig (Original) ciprofloxacin 500 mg oral tablet (6 sources) Quinolone Antimicrobial Start: 03-27-2018 take 1 tablet by mouth twice daily Ciprofloxacin Hcl 500 MG tablet Active 500 mg PO TWICE A DAY 6 0 March 27, 2018 1:00am citalopram 40 mg oral tablet (6 sources) Serotonin Reuptake Inhibitor Start: 08-02-2015 take 1 tablet by mouth once daily Citalopram 40 MG tablet Active 40 mg PO DAILY August 02, 2015 12:00am Depression/Anxiety finasteride 5 mg oral tablet (6 sources) 5-alpha Reductase Inhibitor Start: 03-27-2018 take 1 tablet by mouth once daily Finasteride 5 MG tablet Active 5 mg PO DAILY 30 5 March 27, 2018 1:00am naproxen 500 mg oral tablet (6 sources) Nonsteroidal Anti-inflammatory Drug Start: 03-27-2018 take 1 tablet by mouth once daily as needed for pain Naproxen 500 MG tablet Active 500 mg PO DAILY NEEDED as needed for Pain March 27, 2018 1:00am tamsulosin hydrochloride 0.4 mg oral capsule (6 sources) alpha-Adrenergic Sander Start: 03-27-2018 take 1 capsule by mouth once daily Tamsulosin 0.4 MG capsule Active 0.4 mg PO DAILY 30 5 March 27, 2018 1:00am Problems Problem Classification Problem Date Documented Da te Episodic/Chronic Calculus of urinary tract (6 sources) Urinary bladder stone; Translations: [Calculus in bladder] 03-27-2018 Episodic Conditions associated with dizziness or vertigo (2 sources) Vertigo; Translations: [Dizziness and giddiness] Onset: 01-18-2024 01-18-2024 Episodic Genitourinary symptoms and ill-defined conditions (6 sources) Dmitriy hematuria; Translations: [Gross hematuria] 03-27-2018 Episodic Comment on above: Acute onset Hyperplasia of prostate (6 sources) Benign prostatic hypertrophy with outflow obstruction; Translations: [Benign prostatic hyperplasia with lower urinary tract symptoms] 03-27-2018 Chronic Other screening for suspected conditions (not mental disorders or infectious disease) (1 source) Elevated prostate specific antigen [PSA]; Translations: [Elevated prostate specific antigen [PSA]] Onset: 11-10-2024 Episodic Results Test Name Value Interpretation Reference Range Facility PSA,Total- Diagnosticon 10-13 PSA, DIAGNOSTIC 8.97 ng/mL High 0.00-4.00 [facility] Comment on above: Result Comment: This test was performed using the [employer] tPSA method. Measured values of a patient??sample can vary depending on the testing procedure used. PSA values determined on patient samples by different testing procedures cannot be used interchangeably. If there is a change in PSA assays while monitoring therapy, sequential testing should be performed to confirm baseline values. Performed By: #### L [id number] #### [facility] [address] [place], [address] [id number] 01-18-2024 [id number] HNO ID: [id number] Author: GHANSHYAM SMILEY PT Service: ? Author Type: Physical Therapist Type: [id number] Filed: 01/18/2024 10:19 Note Text: [facility] Physical Therapy Plan of Care Certification Patient Name: Bryce Tuttle : 1945 [facility] #: [id number] Date: 01/18/2024 To: Cedric Wren, DO From Therapist: Ghanshyam Smiley PT RE: Patient Certification/ Recertification Your review, approval and electronic signature are required in order to comply with Payor: [facility] MEDICARE / Plan: [employer] MEDICARE HMO / Product Type: HMO / regulations. The identified Physical Therapy PLAN OF CARE for the patient is as follows: R42 Vertigo (primary encounter diagnosis) PLAN OF CARE: Assessment: Bryce Tuttle presents with diagnosis of vertigo that interferes with bed mobility . The patient presents with impairments in independence in exercise, overall function, patient reported outcome measures, and symptom management. PROMIS? (Patient-Reported Outcomes Measurement Information System) scores were reviewed and identified as a rehabilitation concern. Prognosis for therapy is Good due to: within-session changes . The patient will benefit from skilled therapy services to meet the goals established for this plan of care as noted below. Goals for Episode of Care: established 01/18/24 Patient will have negative positional testing for BPPV. Patient will verbalize the understanding of the diagnosis BPPV, how to recognize symptoms and what to do if they return. Patient will return to prior level of function with all activities of daily living with trace reports of dizziness. Patient Goals: resolve dizziness with positional changes Time Frame for Goals and Treatment : 02/29/24 Planned Interventions, Frequency, and Duration: Current Frequency: 1x/week Duration: 6 weeks Total Number of Visits Planned: 6 Planned Treatment Interventions: Canalith Repositioning Maneuvers (13254), Gait Training (01104), Self-fdc management (48909), Manual therapy (70439), Neuromuscular re-education (97167), Therapeutic exercise (54925), Therapeutic activities (97883) PLAN FOR NEXT VISIT: assess symptom response to R posterior canal CRM, VOR testing Patient demonstrates good understanding of plan of care and treatment. The above goals and plan of care were discussed and agreed upon by patient/family. For further details regarding this patient refer to the Physical Therapy electronically documented visit dated 01/18/2024. Provider Attestation I have reviewed the treatment plan for Bryce Tuttle, [facility]# [id number] for the period of 01/18/24 -- 02/29/24, established on 01/18/2024. Signature certifies the need for therapy services. [facility] CNTHERAPYon 01-18-2024 CNTHERAPY OT/PT/Speech Visit (PTWS) BRYCE TUTTLE ([id number]) 1945 M Date Time Provider Department 01/18/24 9:45 AM GHANSHYAM SMILEY PTWS Date Time Provider Department Center 01/18/2024 9:45 AM [id number] SMILEY PTWS Bouchra Whelan Reason for Visit: PT Eval [747] Primary Visit Diagnosis:Vertigo [R42] Allergies As of Date: 01/18/2024 (Not on File) Date Reviewed: Never Reviewed [employer] Officer: Therapy (PT/OT/Speech/Resp) ID: [id number] 01/18/2024 10:05 AM Author: GHANSHYAM SMILEY Signed by GHANSHYAM SMILEY PT on 01/18/2024 at 10:05 AM Document text: Program_ID:[id number] Access Code: [email or web address] URL: [email or web address] Date: 01-18-2024 Prepared By: Ghanshyam Smiley Program Notes Patient Education - What Is BPPV? - BPPV - BPPV -------- Letter Text Letter Text [facility] THERAPY NTon 01-18-2024 THERAPY NT HNO ID: [id number] Author: GHANSHYAM SMILEY, ANNAMARIA Service: ? Author Type: Physical Therapist Type: Therapy (PT/OT/Speech/Resp) Filed: 01/18/2024 10:05 Note Text: Program_ID:[id number] Access Code: [email or web address] URL: [email or web address] Date: 01-18-2024 Prepared By: Ghanshyam Smiley Program Notes Patient Education - What Is BPPV? - BPPV - BPPV [facility] No Panel InformationOrdered By: Jed Telles on 01-22-2023 Prostate Specific Antigen Screen 10.80 ng/mL 0.00-4.00 [facility] Comment on above: This test was perfor med using the TPSA assay method for the[employer] chemistry system. Values obtained with differentassay methods cannot be used interchangably.When changing PSA assays in the course of monitoring apatient, additional sequential testing should be carriedout to confirm baseline values. Absolute lymphocyte countOrd ered By: Dr. Franklin on 06-25-2022 Lymphocytes Auto (Unsp spec) [#/Vol] 1.89 10*3/uL 0.83-4.51 [facility] Basophil percentageOrdered B y: Dr. Franklin on 06-25-2022 Basophils/100 WBC (Bld) 0.8 % 0-1 [facility] Eosinophils/100 WBC (Bld) 1.5 % 0-5 [facility] Neutrophils (Bld) [#/Vol] 5.0 10*3/uL 2.0-7.7 [facility] Neutrophils/100 WBC (Bld) 63.0 % 47-70 [facility] WBC (Bld) [#/Vol] 7.9 10*3/uL 4.4-11.0 [facility] Blood erythrocytes count (nu mber/volume)Ordered By: Dr. Franklin on 06-25-2022 RBC (Bld) [#/Vol] 4.25 10*6/uL 4.6-6.2 [facility] Blood hemoglobin measurement (mass/volume)Ordered By: Dr. Franklin on 06-25-2022 Hemoglobin (Bld) [Mass/Vol] 14.0 g/dL 13.0-16.5 [facility] Blood lymphocytes/100 leukoc ytesOrdered By: Dr. Franklin on 06-25-2022 Lymphocytes/100 WBC (Bld) 24.0 % 19-41 [facility] Blood monocytes/100 leukocyt esOrdered By: Dr. Franklin on 06-25-2022 Monocytes/100 WBC (Bld) 10.4 % 0-10 [facility] Blood platelet mean volumeOr dered By: Dr. Franklin on 06-25-2022 Platelet mean volume (Bld) [Entitic vol] 9.1 fL 6.2-12.0 [facility] Determination of erythrocyte mean corpuscular volume (MCV)Ordered By: Dr. Franklin on 06-25-2022 MCV (RBC) [Entitic vol] 100.2 fL 80-94 [facility] Erythrocyte sedimentation ra teOrdered By: Dr. Franklin on 06-25-2022 ESR (Bld) [Velocity] 9 mm/h 0-20 [facility] Hematocrit Auto (Bld) [Volum e fraction]Ordered By: Dr. Franklin on 06-25-2022 Hematocrit (Bld) [Volume fraction] 42.6 % 40-54 [facility] - Hematology and Cell countsOrdered By: Dr. Franklin on 06-25-2022 Erythrocyte distribution width (RBC) [Entitic vol] 43.8 fL 35.1-43.9 [facility] Erythrocyte distribution width (RBC) [Ratio] 11.8 % 11.6-14.6 [facility] Immature granulocytes/100 WBC (Bld) 0.300 % 0.0-0.9 [facility] Comment on above: IG% - Immature Granu locytes (promyelocytes, myelocytes and metamyelocytes) > 1% indicates that a LEFT SHIFT is Present. MCH (RBC) [Entitic mass] 32.9 pg 27.0-32.0 [facility] Nucleated RBC/100 WBC (Bld) [Ratio] 0 % 0-5 [facility] MCHC Auto (RBC) [Mass/Vol]Or dered By: Dr. Franklin on 06-25-2022 MCHC (RBC) [Mass/Vol] 32.9 g/dL 32-36 [facility] Platelets bldOrdered By: Dr. Franklin on 06-25-2022 Platelets (Bld) [#/Vol] 338 10*3/uL 150-450 [facility] Serum or plasma C reactive p rotein measurement (mass/volume)Ordered By: Dr. Franklin on 06-25-2022 CRP [Mass/Vol] 6.49 mg/L 0.0-3.0 [facility] Comment on above: C-Reactive Protein ( CRP) provides useful information for thediagnosis, therapy and monitoring of inflammatory processesand associated diseases. For the evaluation of Relative Riskfor Cardiovascular Disease, a High Sensitivity CRP (HSCRP)should be ordered. Basophil percentageOrdered B y: Dr. Telles on 06-22-2022 Basophil percentage < 0.9 mg/dL 0.70-1.30 [facility] No Panel InformationOrdered By: Dr. Telles on 06-22-2022 Bedside Estimated GFR (eGFR) > 60.0000 mL/min >60 [facility] No Panel InformationOrdered By: MERCED Caballero on 06-09-2022 Prostate Specific Antigen Total 14.40 ng/mL 0.0-4.0 [facility] Comment on above: This test was perfor med using the TPSA assay method for the[employer] chemistry system. Values obtained with differentassay methods cannot be used interchangably.When changing PSA assays in the course of monitoring apatient, additional sequential testing should be carriedout to confirm baseline values. Absolute lymphocyte counton 02-11-2022 Lymphocytes Auto (Unsp spec) [#/Vol] 1.91 10*3/uL 0.83-4.51 [facility] Work Phone: Basophil percentageon 2021 Basophils/100 WBC (Bld) 0.5 % 0-1 [facility] Work Phone: Chloride [Moles/Vol] 103 mmol/L 98-107 [facility] Work Phone: Eosinophils/100 WBC (Bld) 0.9 % 0-5 [facility] Work Phone: Glucose [Mass/Vol] 95 mg/dL 74-106 [facility] Work Phone: [phone] Neutrophils (Bld) [#/Vol] 5.5 10*3/uL 2.0-7.7 [facility] Work Phone: Neutrophils/100 WBC (Bld) 65.0 % 47-70 [facility] Work Phone: [phone] Potassium [Moles/Vol] 4.1 mmol/L 3.5-5.1 [facility] Work Phone: [phone] Sodium [Moles/Vol] 139 mmol/L 136-145 [facility] Work Phone: [phone] WBC (Bld) [#/Vol] 8.5 10*3/uL 4.4-11.0 [facility] Work Phone: Blood erythrocytes count (nu mber/volume)on 02-11-2022 RBC (Bld) [#/Vol] 4.31 10*6/uL 4.6-6.2 [facility] Work Phone: Blood hemoglobin measurement (mass/volume)on 02-11-2022 Hemoglobin (Bld) [Mass/Vol] 14.8 g/dL 13.0-16.5 [facility] Work Phone: Blood lymphocytes/100 leukoc yteson 02-11-2022 Lymphocytes/100 WBC (Bld) 22.4 % 19-41 [facility] Work Phone: Blood monocytes/100 leukocyt eson 02-11-2022 Monocytes/100 WBC (Bld) 11.0 % 0-10 [facility] Work Phone: Blood platelet mean volumeon 02-11-2022 Platelet mean volume (Bld) [Entitic vol] 9.6 fL 6.2-12.0 [facility] Work Phone: Determination of erythrocyte mean corpuscular volume (MCV)on 02-11-2022 MCV (RBC) [Entitic vol] 101.2 fL 80-94 [facility] Work Phone: Hematocrit Auto (Bld) [Volum e fraction]on 02-11-2022 Hematocrit (Bld) [Volume fraction] 43.6 % 40-54 [facility] Work Phone: Laboratory - Chemistry and C hemistry - challengeon 02-11-2022 CO2 [Moles/Vol] 31.0 mmol/L 21.0-32.0 [facility] Work Phone: Urea nitrogen/Creatinine [Mass ratio] 26.5 mg/mg 10-20 [facility] Work Phone: Laboratory - Hematology and Cell countson 02-11-2022 Erythrocyte distribution width (RBC) [Entitic vol] 43.2 fL 35.1-43.9 [facility] Work Phone: Erythrocyte distribution width (RBC) [Ratio] 11.5 % 11.6-14.6 [facility] Work Phone: Immature granulocytes/100 WBC (Bld) 0.200 % 0.0-0.9 [facility] Work Phone: Comment on above: IG% - Immature Granu locytes (promyelocytes, myelocytes and metamyelocytes) > 1% indicates that a LEFT SHIFT is Present. MCH (RBC) [Entitic mass] 34.3 pg 27.0-32.0 [facility] Work Phone: Nucleated RBC/100 WBC (Bld) [Ratio] 0 % 0-5 [facility] Work Phone: MCHC Auto (RBC) [Mass/Vol]on 02-11-2022 MCHC (RBC) [Mass/Vol] 33.9 g/dL 32-36 [facility] Work [facility]: No Panel Informationon 02-11 Estimated GFR (MDRD) Amer 123 mL/min >60 [facility] Work Phone: Comment on above: GFR Calc Estimated GFR (MDRD) Non-Af Amer 101 mL/min >60 [facility] Work Phone: Comment on above: Non- GFR Calc Platelets bldon 02-11-2022 Platelets (Bld) [#/Vol] 367 10*3/uL 150-450 [facility] Work Phone: Serum or plasma calcium dragan urement (mass/volume)on 02-11-2022 Calcium [Mass/Vol] 9.7 mg/dL 8.5-10.1 [facility] Work Phone: Serum or plasma creatinine m easurement (mass/volume)on 02-11-2022 Creatinine [Mass/Vol] 0.79 mg/dL 0.70-1.30 [facility] Work Phone: Comment on above: The validity of the calculated GFR & GFRAA in patients over 70 years has not been determined. Clinical correlation is essential. Serum or plasma urea nitroge n measurement (mass/volume)on 02-11-2022 Urea nitrogen [Mass/Vol] 21 mg/dL 7-18 [facility] Work Phone: Thin prep Papanicolaou smear with manual screeningon 02-11-2022 Thin prep Papanicolaou smear with manual screening 5 5-15 [facility] Work Phone: Absolute lymphocyte counton 12-29-2021 Lymphocytes Auto (Unsp spec) [#/Vol] 2.21 10*3/uL 0.83-4.51 [facility] Work Phone: Basophil percentageon 2021 Basophils/100 WBC (Bld) 0.6 % 0-1 [facility] Work Phone: Bilirubin [Mass/Vol] 0.30 mg/dL 0.20-1.00 [facility] Work Phone: Comment on above: For patients on eltr ombopag therapy, use of Dimension Grabill TBIL is not recommended. Chloride [Moles/Vol] 103 mmol/L 98-107 [facility] Work Phone: Cholesterol [Mass/Vol] 192 mg/dL <200 Wo desi [facility] Work Phone: [phone] Comment on above: <200 mg/dL Desirable 200-240 mg/dL Borderline >240 mg/dL High Risk Eosinophils/100 WBC (Bld) 1.4 % 0-5 [facility] Work Phone: Glucose [Mass/Vol] 96 mg/dL 74-106 [facility] Work Phone: [phone] Neutrophils (Bld) [#/Vol] 6.0 10*3/uL 2.0-7.7 [facility] Work Phone: Neutrophils/100 WBC (Bld) 64.1 % 47-70 [facility] Work Phone: [phone] Potassium [Moles/Vol] 4.1 mmol/L 3.5-5.1 [facility] Work Phone: Protein [Mass/Vol] 7.2 g/dL 6.4-8.2 [facility] Work Phone: Sodium [Moles/Vol] 140 mmol/L 136-145 [facility] Work Phone: Triglyceride [Mass/Vol] 75 mg/dL <199 [facility] Work Phone: Comment on above: The drugs N-Acetylcy steine and Metamizole may falsely depress this assay.Serum Triglycerides Reference Interval Normal <150 mg/dL Borderline high 150 - 199 mg/dL High 200 - 499 mg/dL Very High > or = 500 mg/dL WBC (Bld) [#/Vol] 9.4 10*3/uL 4.4-11.0 [facility] Work Phone: Blood erythrocytes count (nu mber/volume)on 12-29-2021 RBC (Bld) [#/Vol] 4.36 10*6/uL 4.6-6.2 [facility] Work Phone: Blood hemoglobin measurement (mass/volume)on 12-29-2021 Hemoglobin (Bld) [Mass/Vol] 14.7 g/dL 13.0-16.5 [facility] Work Phone: Blood lymphocytes/100 leukoc yteson 12-29-2021 Lymphocytes/100 WBC (Bld) 23.5 % 19-41 [facility] Work Phone: Blood monocytes/100 leukocyt eson 12-29-2021 Monocytes/100 WBC (Bld) 10.0 % 0-10 [facility] Work Phone: Blood platelet mean volumeon 12-29-2021 Platelet mean volume (Bld) [Entitic vol] 9.3 fL 6.2-12.0 [facility] Work Phone: Determination of erythrocyte mean corpuscular volume (MCV)on 12-29-2021 MCV (RBC) [Entitic vol] 101.8 fL 80-94 [facility] Work Phone: Hematocrit Auto (Bld) [Volum e fraction]on 12-29-2021 Hematocrit (Bld) [Volume fraction] 44.4 % 40-54 [facility] Work Phone: Laboratory - Chemistry and C hemistry - challengeon 12-29-2021 ALP [Catalytic activity/Vol] 84 U/L 45-117 [facility] Work Phone: ALT [Catalytic activity/Vol] 31 U/L 16-61 [facility] Work Phone: CO2 [Moles/Vol] 29.0 mmol/L 21.0-32.0 [facility] Work Phone: Globulin (S) [Mass/Vol] 3.7 g/dL 2.2-4.2 [facility] Work Phone: Urea nitrogen/Creatinine [Mass ratio] 28.0 mg/mg 10-20 [facility] Work Phone: Laboratory - Hematology and Cell countson 12-29-2021 Erythrocyte distribution width (RBC) [Entitic vol] 45.9 fL 35.1-43.9 [facility] Work Phone: Erythrocyte distribution width (RBC) [Ratio] 12.0 % 11.6-14.6 [facility] Work Phone: Immature granulocytes/100 WBC (Bld) 0.400 % 0.0-0.9 [facility] Work Phone: Comment on above: IG% - Immature Granu locytes (promyelocytes, myelocytes and metamyelocytes) > 1% indicates that a LEFT SHIFT is Present. MCH (RBC) [Entitic mass] 33.7 pg 27.0-32.0 [facility] Work Phone: Nucleated RBC/100 WBC (Bld) [Ratio] 0 % 0-5 [facility] Work Phone: MCHC Auto (RBC) [Mass/Vol]on 12-29-2021 MCHC (RBC) [Mass/Vol] 33.1 g/dL 32-36 [facility] Work Phone: No Panel Informationon 12-29 Estimated GFR (MDRD) Amer 107 mL/min >60 [facility] Work Phone: Comment on above: GFR Calc Estimated GFR (MDRD) Non-Af Amer 88 mL/min >60 [facility] Work Phone: Comment on above: Non- GFR Calc Platelets bldon 12-29-2021 Platelets (Bld) [#/Vol] 385 10*3/uL 150-450 [facility] Work Phone: Serum or plasma albumin dragan urement (mass/volume)on 12-29-2021 Albumin [Mass/Vol] 3.5 g/dL 3.2-5.0 [facility] Work Phone: Serum or plasma albumin/glob ulin mass ratioon 12-29-2021 Albumin/Globulin [Mass ratio] 0.9 {ratio} 0.9-2.4 [facility] Work Phone: Serum or plasma calcium dragan urement (mass/volume)on 12-29-2021 Calcium [Mass/Vol] 9.5 mg/dL 8.5-10.1 [facility] Work Phone: Serum or plasma cholesterol in HDL measurement (mass/volume)on 12-29-2021 Cholesterol in HDL [Mass/Vol] 77 mg/dL >40 [facility] Work Phone: Comment on above: The drugs N-Acetylcy steine and Metamizole may falsely depress this assay. Reference Range HDL <40 mg/dL Low HDL Cholesterol HDL >or= 60 mg/dL High HDL Cholesterol Serum or plasma cholesterol in VLDL measurement (mass/volume)on 12-29-2021 Cholesterol in VLDL [Mass/Vol] 15 mg/dL 5-40 [facility] Work Phone: Serum or plasma creatinine m easurement (mass/volume)on 12-29-2021 Creatinine [Mass/Vol] 0.89 mg/dL 0.70-1.30 [facility] Work Phone: Comment on above: The validity of the calculated GFR & GFRAA in patients over 70 years has not been determined. Clinical correlation is essential. Serum or plasma low density lipoprotein (LDL) cholesterol measurement (mass/volume)on 12-29-2021 Cholesterol in LDL [Mass/Vol] 100 mg/dL 0-130 [facility] Work Phone: Serum or plasma urea nitroge n measurement (mass/volume)on 12-29-2021 Urea nitrogen [Mass/Vol] 25 mg/dL 7-18 [facility] Work Phone: Thin prep Papanicolaou smear with manual screeningon 12-29-2021 Thin prep Papanicolaou smear with manual screening 24 U/L 15-37 [facility] Work Phone: Thin prep Papanicolaou smear with manual screening 8 5-15 [facility] Work Phone: Encounters Encounter Date Encounter Type Care Provider Facility Start: 10-30-2024 End: 10-30-[address] Cedric Wren DO Work Phone: -Laboratory Start: 10-30-2024 End: 10-30-[address] Jed Telles MD -Laboratory Work Phone: Start: 10-30-2024 End: 10-30-2024 ambulatory Jed Telles Facility:[facility] Start: 01-18-2024 End: 01-18-2024 ambulatory Ghanshyam Smiley PT [facility] Comment on above: Vertigo (Primary Dx) Start: 01-22-2023 End: 01-22-2023 ambulatory [facility] Work Phone: Start: 01-22-2023 End: 01-22-2023 Patient encounter procedure [facility] Work Phone: Start: 06-25-2022 Patient encounter procedure [facility] Start: 06-22-2022 End: 06-22-2022 ambulatory [facility] Work Phone: Start: 06-22-2022 End: 06-22-2022 Patient encounter procedure [facility] [facility] - [facility] Start: 06-09-2022 End: 06-09-2022 ambulatory [facility] Work Phone: Start: 06-09-2022 End: 06-09-2022 Patient encounter procedure [facility] Start: 02-11-2022 End: 02-11-2022 ambulatory [facility] Work Phone: Start: 02-11-2022 End: 02-11-2022 Patient encounter procedure [facility], [facility] Start: 12-29-2021 End: 12-29-2021 ambulatory [facility] Work Phone: Start: 12-29-2021 End: 12-29-2021 Patient encounter procedure [facility], [facility] Procedures Date Procedure Procedure Detail Performing Clinician Start: 10-30-2024 Assay of prostate sp ecific antigen total Dr. Cedric Wren DO Work Phone: Comment on above: This test was perfor med using the [employer] tPSA method. Measured values of a patient sample can vary depending on the testing procedure used. PSA values determined on patient samples by different testing procedures cannot be used interchangeably. If there is a change in PSA assays while monitoring therapy, sequential testing should be performed to confirm baseline values. Start: 06-22-2022 MRI of pelvis with contrast Start: 12-29-2021 Plain chest X-ray Plan of Treatment Date Care Activity Detail Author Start: 04-01-2026 Urine microalbumin profile DTa P,Tdap,Td Vaccine (2 - Td or Tdap) [facility] Start: 11-14-2023 Covid-19 Vaccine () Covid-19 Vaccine () [facility] Start: 03-15-2023 Advance Directive Discussion Advance Directive Discussion [facility] Start: 07-13-2022 RSV Vaccine (1 - 1-d ose 75+ series) RSV Vaccine (1 - 1-dose 75+ series) [facility] Start: 03-17-2016 Shingrix Vaccine (2 of 3) Chung grix Vaccine (2 of 3) [facility] Start: 07-13-1992 Diabetes Screening Diabetes Screenin g [facility] Start: 07-13-1965 Anxiety Screening Anxiety Screening [facility] Start: 07-13-1965 Depression Screening Depression Scre ening [facility] Start: 07-13-1965 Hepatitis C screening Hepatitis C Ar naa [facility] Payers Date Payer Category Payer Self-pay [id number] 2024 Self-pay [id number] 2021 Medicare AETNA MEDICARE A ETNA MEDICARE HMO [id number] 2021-Present [phone] [address] [place] [address] O [id number] 2021 Private Health Insurance 101 [id number] 2014 Medicare [id number] Unknown [id number] Social History Date Type Detail Facility Start: 03-28-2018 End: 03-28-2018 Tobacco smoking status NHIS Unknown if ever smoked [facility] Start: 03-27-2018 None [facility] Start: 03-27-2018 With Family [facility] Start: 03-28-2018 Non-smoker [facility] Start: 1945 Sex Assigned At Male [facility] Start: 1945 Sex assigned at Not on file [facility] Gender identity Not on file [facility] Start: 03-28-2018 Tobacco smoking stat us NHIS Smokes tobacco daily (finding) [facility] History of Present illness Narrative 01-18-2024 Ghanshyam Smiley, PT - 01/18/2024 10:05 AM Ghanshyam Christianson, PT - 01/18/2024 9:30 AM EST Note Date & Type Note Facility 01-18-2024 History of Presen t illness Narrative Program_ID:[id number] Access Code: [email or web address] URL: [email or web address] Date: 01-18-2024 Prepared By: Ghanshyam Smiley Program Notes Patient Education - What Is BPPV? - BPPV - BPPV Episode Visit Count: 1 Therapist That Will Accept/Oversee The Plan Of Care: Ghanshyam Smiley Start of Care Date: 01/18/24 Onset Date: 11/18/23 Plan of Care Certification Date: 01/18/24 Next Certification Due Date: 02/29/24 Patient Identified by Name and Date of : Yes REHABILITATION AND SPORTS THERAPY PHYSICAL THERAPY EVALUATION PLAN OF CARE: Assessment: Bryce Tuttle presents with diagnosis of vertigo that interferes with bed mobility . The patient presents with impairments in independence in exercise, overall function, patient reported outcome measures, and symptom management. PROMIS (Patient-Reported Outcomes Measurement Information System) scores were reviewed and identified as a rehabilitation concern. Prognosis for therapy is Good due to: within-session changes . The patient will benefit from skilled therapy services to meet the goals established for this plan of care as noted below. Goals for Episode of Care: established 01/18/24 Patient will have negative positional testing for BPPV. Patient will verbalize the understanding of the diagnosis BPPV, how to recognize symptoms and what to do if they return. Patient will return to prior level of function with all activities of daily living with trace reports of dizziness. Patient Goals: resolve dizziness with positional changes Time Frame for Goals and Treatment : 02/29/24 Planned Interventions, Frequency, and Duration: Current Frequency: 1x/week Duration: 6 weeks Total Number of Visits Planned: 6 Planned Treatment Interventions: Canalith Repositioning Maneuvers (03605), Gait Training (97647), Self-fdc management (92415), Manual therapy (91789), Neuromuscular re-education (53096), Therapeutic exercise (62858), Therapeutic activities (53020) PLAN FOR NEXT VISIT: assess symptom response to R posterior canal CRM, VOR testing Patient demonstrates good understanding of plan of care and treatment. The above goals and plan of care were discussed and agreed upon by patient/family. SUBJECTIVE: for dizziness that onset about 2 mo. ago with sitting up from the R side of the bed and reclining back in his chair. Lasts for a moment and resolves with keeping still. Initial onset about 2 mo. ago, and pt. reports that it took an hour of laying still for it to resolve. 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 Intake Information: Prescription present Previous Treatment: (meclizine - effective) Falls Interview: No positive findings with falls interview Concussion History of Concussion: No Vestibular Symptoms present for: months Symptom onset: sudden Dizziness: Yes Description: spinning (self), vertigo Rating of current symptoms: 2/10 (lightheadedness) Frequency: Intermittent Duration: minutes Symptoms worsened by: sitting (reclining back) Nausea: no Headache: No Neck Symptoms: No Jaw Symptoms: No Ear Symptoms: Yes Description: (pressure) Rating of current symptoms: 0/10 Location: both ears equally Hearing Changes: No recent changes (wears hearing aides - they just broke) Tinnitus: No recent changes Sleeping Position: Supine Pain: Pain Pain Level: 0 Post Treatment Pain Post Treatment Pain Level: Better PROMIS Scales 01/18/2024 Higher is Better Phys Func - Score 51 (within normal limits) Phys Func - Percentile 54 Self-Eff Symptom - Score 38 (Low) Self-Eff Symptom - Percentile 12 T-scores: mean of general population = 50. 5 points is clinically meaningfully difference Percentiles provide an indication of how the patient's score ranks in relation to the general population. Higher percentile rankings indicate better function/quality of life. 50th percentile is the average of the general population and indicates half of respondents had a worse score. OBJECTIVE MEASURES WITH LEVEL OF FUNCTION: Posture / Alignment Posture: Forward head, Increased thoracic kyphosis Oculomotor Testing Fixation Present Ocular ROM: WNL Spontaneous Nystagmus: No nystagmus Gaze Evoked Nystagmus: Not Present Saccadic eye movements: Horizontal, vertical and oblique all WNL. Oculomotor Testing Fixation Removed Spontaneous Nystagmus: No nystagmus Gaze Evoked Nystagmus: Not present Positional Testing Right [place]ie-Hallpike: Less than 60 seconds, Symptomatic, With delay, Upbeat (counterclockwise) Left [place]-Hallpike: Asymptomatic, No nystagmus Right Ear Down: Asymptomatic, No nystagmus Left Ear Down: Asymptomatic, No nystagmus Mobility Rolling: Independent Supine To Sit: Independent Gait Gait Observation: unremarkable Education: Education Learning Preferences: Demonstration, Explanation, Performance, Printed Materials Barriers: Hearing Deficit Learning/educational needs: Plan of Care, Home exercise program, Posture Education Provided: Yes, see treatment interventions for education provided Education Provided To: Patient Education Mode/Type: Demonstration, Explanation/Discussion, Literature/Printed Materials, Performance Response to Education/Teach Back: States/Identifies, Return Demonstration TREATMENT: PT Treatment Interventions: Canalith Repositioning, Self-Mcc Management Evaluation Self-Mcc Management: 1: *discussed possible causes of dizziness, vestibular system is likely 2: *discussed what is BPPV, provided hand outs 3: *post-CRM precautions 4: *discussed how the vsetibular system affects the visual system, but is different Skilled Intervention: Skilled judgment in the selection of proper modification for activity of daily living/home management based on clinical presentation, deficits, and needs. Provided written instruction for activities of daily living techniques to facilitate proper performance and compliance. Reviewed patient specific diagnosis in relation to activities of daily living/home management. Activity progression based on professional judgement. Provided written instruction for home program to facilitate proper performance and compliance. Canalith Repositionin: R madhav for R posterior canalithiasis Skilled Intervention: Professional judgment was used to determine specific treatment interventions based on assessment of symptoms. Physically assisted patient through each step of repositioning. Verbal and tactile cues provided to patient to assist in moving between each position of maneuver in correct sequence. Patient education including handouts provided regarding self repostitioning techniques to be performed at home. Instructed patient in post repositioning procedures including head upright x2 hours following CRM. Billing * Evaluation Low Complexity: 1 Unit Self-Care/Home Management Treatment Minutes: 10 * Canalith Repositionin unit Skilled Treatment Time Minutes (timed and untimed codes): 45 Total Session Time (minutes): 45 Session Start Time : 929 Session Stop Time : 1015 Ghanshyam Smiley PT documented in this encounter [facility] Progress note 01-18-2024 Note Date & Type Note Facility 01-18-2024 Note HNO ID: [id number] Author: GHANSHYAM SMILEY PT Service: ? Author Type: Physical Therapist Type: Progress Notes Filed: 01/18/2024 10:20 Note Text: Episode Visit Count: 1 Therapist That Will Accept/Oversee The Plan Of Care: Ghanshyam Smiley Start of Care Date: 01/18/24 Onset Date: 11/18/23 Plan of Care Certification Date: 01/18/24 Next Certification Due Date: 02/29/24 Patient Identified by Name and Date of : Yes REHABILITATION AND SPORTS THERAPY PHYSICAL THERAPY EVALUATION PLAN OF CARE: Assessment: Bryce Tuttle presents with diagnosis of vertigo that interferes with bed mobility . The patient presents with impairments in independence in exercise, overall function, patient reported outcome measures, and symptom management. PROMIS? (Patient-Reported Outcomes Measurement Information System) scores were reviewed and identified as a rehabilitation concern. Prognosis for therapy is Good due to: within-session changes . The patient will benefit from skilled therapy services to meet the goals established for this plan of care as noted below. Goals for Episode of Care: established 01/18/24 Patient will have negative positional testing for BPPV. Patient will verbalize the understanding of the diagnosis BPPV, how to recognize symptoms and what to do if they return. Patient will return to prior level of function with all activities of daily living with trace reports of dizziness. Patient Goals: resolve dizziness with positional changes Time Frame for Goals and Treatment : 02/29/24 Planned Interventions, Frequency, and Duration: Current Frequency: 1x/week Duration: 6 weeks Total Number of Visits Planned: 6 Planned Treatment Interventions: Canalith Repositioning Maneuvers (30008), Gait Training (37409), Self-fdc management (39667), Manual therapy (92890), Neuromuscular re-education (41265), Therapeutic exercise (17784), Therapeutic activities (30152) PLAN FOR NEXT VISIT: assess symptom response to R posterior canal CRM, VOR testing Patient demonstrates good understanding of plan of care and treatment. The above goals and plan of care were discussed and agreed upon by patient/family. SUBJECTIVE: for dizziness that onset about 2 mo. ago with sitting up from the R side of the bed and reclining back in his chair. Lasts for a moment and resolves with keeping still. Initial onset about 2 mo. ago, and pt. reports that it took an hour of laying still for it to resolve. 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 Intake Information: Prescription present Previous Treatment: (meclizine - effective) Falls Interview: No positive findings with falls interview Concussion History of Concussion: No Vestibular Symptoms present for: months Symptom onset: sudden Dizziness: Yes Description: spinning (self), vertigo Rating of current symptoms: 2/10 (lightheadedness) Frequency: Intermittent Duration: minutes Symptoms worsened by: sitting (reclining back) Nausea: no Headache: No Neck Symptoms: No Jaw Symptoms: No Ear Symptoms: Yes Description: (pressure) Rating of current symptoms: 0/10 Location: both ears equally Hearing Changes: No recent changes (wears hearing aides - they just broke) Tinnitus: No recent changes Sleeping Position: Supine Pain: Pain Pain Level: 0 Post Treatment Pain Post Treatment Pain Level: Better PROMIS Scales 01/18/2024 Higher is Better Phys Func - Score 51 (within normal limits) Phys Func - Percentile 54 Self-Eff Symptom - Score 38 (Low) Self-Eff Symptom - Percentile 12 T-scores: mean of general population = 50. 5 points is clinically meaningfully difference Percentiles provide an indication of how the patient's score ranks in relation to the general population. Higher percentile rankings indicate better function/quality of life. 50th percentile is the average of the general population and indicates half of respondents had a worse score. OBJECTIVE MEASURES WITH LEVEL OF FUNCTION: Posture / Alignment Posture: Forward head, Increased thoracic kyphosis Oculomotor Testing Fixation Present Ocular ROM: WNL Spontaneous Nystagmus: No nystagmus Gaze Evoked Nystagmus: Not Present Saccadic eye movements: Horizontal, vertical and oblique all WNL. Oculomotor Testing Fixation Removed Spontaneous Nystagmus: No nystagmus Gaze Evoked Nystagmus: Not present Positional Testing Right [place]-Hallpike: Less than 60 seconds, Symptomatic, With delay, Upbeat (counterclockwise) Left [place]-Hallpike: Asymptomatic, No nystagmus Right Ear Down: Asymptomatic, No nystagmus Left Ear Down: Asymptomatic, No nystagmus Mobility Rolling: Independent Supine To Sit: Independent Gait Gait Observation: unremarkable Education: Educatio (more content not included)... [facility] Evaluation note Note Date & Type Note Facility Evaluation note No assessment information availa [facility] Work Phone: Evaluation note Note Date & Type Note Facility Evaluation note Diagnosis Vertigo- Primary Dizziness and giddiness documented in this encounter [facility] Reason for referral (narrative) Note Date & Type Note Facility Reason for referral (narrative) No reason for referral information available [facility] Work Phone: Chief Complaint and Reason for Visit Chief Complaint CHEST XRAY Chief Complaint ELEVATED PSA Chief Complaint PSA Chief Complaint Admit Date LABS October 30, 2024 1: 32pm Family History No Family History Records Found Relationship Condition Age at Onset Recorded Date/T raisa Unknown Family History?No pe rtinent history Unknown March 27, 2018 10:09am Relationship Condition Age at Onset Recorded Date/T raisa Unknown Family History?No pe rtinent history Unknown March 27, 2018 9:09am Advance Directives No Advanced Directives Records Found Advance Directive Response Recorded Date/ Time Living Will Yes March 27 6:17am Power of Pipe Stripper Yes March 27, 2018 6:17am Advance Directive Response Recorded Date/ Time Living Will Yes March 27 5:17am Power of Pipe Stripper Yes March 27, 2018 5:17am Summary Purpose Additional Source Comments Goals (unrecognized section and content) Goals may be documented in a n alternate sectionGoals may be documented in an alternate sectionGoals may be documented in an alternate sectionGoals may be documented in an alternate sectionGoals may be documented in an alternate sectionGoals may be documented in an alternate section Care Teams (unrecognized sec tion and content) Team Status: Active Member Role Status Dates Dr. Radha Meyer MD Family Provider Active Dr. Cedric Wren DO Primary Care Provider Active Team Status: Inactive Member Role Status Dates Dr. Cedric Wren DO Primary Care Provider Active Allison Caballero OUTSIDE RIGGER-C Attending Provider Active Team Status: Inactive Member Role Status Dates Dr. Cedric Wren DO Primary Care Provider Active Dr. Jed Telles MD Attending Provider, Referr ing Provider Active Team Status: Active Member Role Status Dates Dr. Cedric Wren DO Primary Care Provider Active Dr. Joe Franklin DO Attending Provider, Referring Provider Active Division Operations Manager Relationship Specialty Start Date End Date Cedric Wren DO [address] [place] [address] PCP - General Family Medicine 12/15/23 Team Status: Active Member Role/Relationship Status Dates Dr. Cedric Wren DO Primary Care Provider Active Team Status: Inactive Member Role/Relationship Status Dates Dr. Cedric Wren DO Primary Care Provider Active Start: October 30, 2024 End: October 30, 2024 Dr. Jed Telles MD Attending Provider Active Start: October 30, 2024 End: October 30, 2024 Dr. Jed Telles MD Referring Provider Active Start: October 30, 2024 End: October 30, 2024 Source Comments (unrecognize d section and content) In the event this informatio n is protected by the Federal Confidentiality of Alcohol and Drug Abuse Patient Records regulations: The Federal rules restrict any use of the information to criminally investigate or prosecute any alcohol or drug abuse patient.[facility] Reason for Visit (unrecogniz ed section and content) Reason Comments PT Eval Specialty Diagnoses / Procedures Referred By Contac t Referred To Contact Physical Therapy / PHYSICAL THERAPY Diagnoses Dizziness Procedures NEW RS PT VESTIBULAR DIZZY Cedric Wren, DO [address] [place] [address] Ghanshyam Smiley, ANNAMARIA Referral ID Status Reason Start Date Expiration Date V isits Requested Visits Authorized [id number] Authorized 03/15/2023 03/14/2024 99 99 (unrecognized sect ion and content) No Status Records FoundNo Status Records Found INFORMATION SOURCE (unrecogn ized section and content) DATE CREATED AUTHOR 02/05/2024 [facility] DATE CREATED AUTHOR AUTHOR'S ORGANDANNI ATION 11/12/2024 [facility] FOR RECORDS PERTAINING TO PATIENTS WHO ARE OR HAVE BEEN ENROLLED IN A CHEMICAL DEPENDENCY/SUBSTANCEABUSE PROGRAM, SOME INFORMATION MAY BE OMITTED. This clinical summary was aggregated from multiple sources. Caution should be exercised in using it in the provision of clinical care. This summary normalizes information from multiple sources, and as a consequence, information in this document may materially change the coding, format and clinical context of patient data. In addition, data may be omitted in some cases. CLINICAL DECISIONS SHOULD BE BASED ON THE PRIMARY CLINICAL RECORDS. [employer] [facility]. provides no warranty or guarantee of the accuracy or completeness of information in this document.
[2025-01-19 15:01] LABS: Hematocrit 41.6 % (40-54); Hemoglobin 13.8 g/dL (13.0-16.5); Immature Granulocytes Count 0.020 X10^3/uL (0.0-0.0); Mean Corp Hgb Conc 33.2 g/dL (32-36); Mean Corpuscular Volume 99.8 fL (80-94); Mean Platelet Vol. 9.3 fl (6.2-12.0); NRBC Flagged by Analyzer 0 % (0-5); Platelet Count 322 K/mm3 (150-450); RBC Distribution Width CV 11.9 % (11.6-14.6); RBC Distribution Width SD 43.7 fl (35.1-43.9); Red Blood Count 4.17 M/mm3 (4.6-6.2); White Blood Count 7.3 K/mm3 (4.4-11.0)
[2025-01-19 15:29] LABS: AST(SGOT) 24 U/L (<=37); Alanine Aminotransfer ALT/SGPT 21 U/L (<=46); Albumin, Serum 4.1 g/dL (3.4-4.8); Alkaline Phosphatase 65 U/L (40-129); Anion Gap 10 (5-15); BUN 23 mg/dL (4-19); BUN/Creat Ratio 33.8 RATIO (10-20); Calcium,Total 9.4 mg/dL (7.6-11.0); Carbon Dioxide 27.0 mmol/L (21.0-32.0); Chloride 103 mmol/L (98-108); Cholesterol 208 mg/dL (<=200); Globulin 2.7 g/dL (2.2-4.2); Glucose 81 mg/dL (70-99); Low Density Lipoprotein Calc. 111 mg/dL; Potassium 4.1 mmol/L (3.3-5.1); Triglycerides 55 mg/dL; Very Low Density Lipoprotein 11 mg/dL (5-40); cholesterol:hdl ratio screen 2.40
== END | disposition home or self-care (01) ==
LOC: BFHLAB 11:02
PROVIDERS: PCP Family Medicine; Visit Provider Family Medicine
DX: I65.22 Occlusion and stenosis of left carotid artery (principal); R63.4 Abnormal weight loss
CPT/HCPCS: 36415; 80053; 80061; 85025